=== PATIENT | female | born 1980 | race African-American/Black ===

== ENCOUNTER 2017-05-30 03:41 | Emergency (ER) | payer MEDICAID ==
[~2017-05-30] VITALS: Ht 160 cm; Wt 66.0 kg
[2017-05-30 05:00] VITALS: BP 135/77
== END 2017-05-30 08:02 | disposition home or self-care (01) ==
LOC: ER 03:50
DX: B02.9 Zoster without complications (principal); F12.10 Cannabis abuse, uncomplicated
CPT/HCPCS: 82962; 99283

== ENCOUNTER 2017-09-09 06:37 | Emergency (ER) | payer MEDICAID ==
[~2017-09-09] VITALS: Ht 160 cm; Wt 63.0 kg
[2017-09-09 06:56] VITALS: BP 114/77
[2017-09-09] MEDS ORDERED: DIPHENHYDRAMINE 25MG CAPSULE PO ONE (09:45)
== END 2017-09-09 10:25 | disposition home or self-care (01) ==
LOC: ER 07:26
DX: T78.40XA Allergy, unspecified, initial encounter (principal); F12.10 Cannabis abuse, uncomplicated; X58.XXXA Exposure to other specified factors, initial encounter
CPT/HCPCS: 99282; Q0163